=== PATIENT | male | born 1965 | race African-American/Black ===

== ENCOUNTER 2017-02-04 18:01 | Emergency (ER) | payer MEDICARE, OTHER, MEDICAID ==
[~2017-02-04] VITALS: Ht 193 cm; Wt 110.7 kg
[2017-02-04 18:06] VITALS: BP 119/71
[2017-02-04] MEDS ORDERED: BACITRACIN TOP OINT 1 UD PKG TOP ONE (18:45)
== END 2017-02-04 18:53 ==
LOC: ER 18:04
DX: S61.411A Laceration without foreign body of right hand, initial encounter (principal); E11.9 Type 2 diabetes mellitus without complications; Z99.2 Dependence on renal dialysis; Z89.512 Acquired absence of left leg below knee; W25.XXXA Contact with sharp glass, initial encounter; Y93.89 Activity, other specified; Y99.8 Other external cause status; Y92.89 Other specified places as the place of occurrence of the external cause
CPT/HCPCS: 12002